=== PATIENT | female | born 1970 | race Caucasian/White ===

== ENCOUNTER → 2021-01-15 09:37 | Outpatient (CLI) | payer OTHER, SELFPAY ==
[2021-01-15 10:14] LABS: Add Manual Diff / Slide Review NO; Basophils Absolute Auto 0 /uL (0-100); Basophils Percent Auto 0.3 % (0-2); Eosinophils Absolute Auto 300 /uL (0-450); Eosinophils Percent Auto 4.1 % (2-4); Hematocrit 40.1 % (36-46); Hemoglobin 13.8 g/dL (12.0-16.0); Lymphocytes Absolute Auto 1500 /uL (1100-4500); Lymphocytes Percent Auto 21.4 % (25-40); Mean Corpuscular HGB Conc 34.3 % (30-36); Mean Corpuscular Hemoglobin 34.1 PG (26-34); Mean Corpuscular Volume 99.5 fL (80-100); Monocytes Absolute Auto 600 /uL (0-900); Monocytes Percent Auto 9.1 % (3-14); Neutrophils Absolute Auto 4500 /uL (1500-7000); Neutrophils Percent Auto 65.1 % (50-75); Platelet Count 326 X10^3/uL (150-400); Red Blood Cell Count 4.04 X10^6/uL (4.0-5.2); Red Cell Distribution Width 13.8 % (11.6-14.8); White Blood Cell Count 6.9 X10^3/uL (4.5-11.0)
[2021-01-15 10:41] LABS: Alanine Aminotransferase 45 IU/L (<35); Albumin 4.3 g/dL (3.5-5.0); Albumin Globulin Ratio 1.4 (1.0-2.8); Alkaline Phosphatase 105 U/L (38-126); Aspartate Aminotransferase 51 IU/L (14-36); BUN Creatinine Ratio 11.4 (6-22); Bilirubin Total 0.5 mg/dL (0.2-1.3); Blood Urea Nitrogen 8 mg/dL (7-17); Calcium 9.7 mg/dL (8.4-10.2); Carbon Dioxide 24 mmol/L (22-32); Chloride 106 mmol/L (98-107); Cholesterol 228 mg/dL (140-199); Estimated Glomerular Filt Rate > 60.0 mL/min (>60); Glucose 104 mg/dL (70-100); HDL Cholesterol 77 mg/dL (40-60); HEMOLYSIS < 15 (0-50); LDL Cholesterol Calculated 132 mg/dL (<100); Potassium 4.2 mmol/L (3.4-5.1); Sodium 138 mmol/L (137-145); Total Protein 7.3 g/dL (6.3-8.2); Triglycerides 93 mg/dL (35-150)
[2021-01-15 11:06] LABS: TSH w/ Reflex to FT4 1.64 uIU/mL (0.47-4.68)
[2021-01-15 11:24] LABS: Vitamin B12 375 pg/mL (239-931)
[2021-01-15 11:35] LABS: Vitamin D 25 Hydroxy (D3) 17.5 ng/mL (30.0-100.0)
== END ==
PROVIDERS: PCP Student in an Organized Health Care Education/Training Program; Referring Provider Student in an Organized Health Care Education/Training Program; Visit Provider Student in an Organized Health Care Education/Training Program
DX: F34.1 Dysthymic disorder (principal); R10.31 Right lower quadrant pain; Z13.220 Encounter for screening for lipoid disorders; E55.9 Vitamin D deficiency, unspecified
CPT/HCPCS: 36415; 80053; 80061; 82306; 82607; 84443; 85025

== ENCOUNTER → 2021-01-22 15:38 | Outpatient (CLI) | payer OTHER, SELFPAY ==
--- NOTE | 2021-01-22 15:39 | DI.US.S_ITS ---
PROCEDURE: US PELVIC COMPLETE INDICATIONS: RIGHT LOWER QUADRANT PAIN TECHNIQUE: Real-time scanning was performed of the pelvic organs, with image documentation. Additional endovaginal scanning was necessary due to incomplete visualization of the adnexal and endometrial structures by transabdominal scanning. COMPARISON: None. FINDINGS: Uterus: Uterus is normal in size at 6.8 x 4.8 x 3.6 cm. The uterus is heterogeneous and demonstrates an intramural fibroid on the right that measures 2.1 x 2.2 x 1.8 cm. The endometrial stripe is not well seen. The IUD is not well seen, yet on a few images it is believed to be within the endometrial stripe at the fundus. Ovaries: The right ovary measures 2.7 x 1.6 x 0.9 cm. The left ovary measures 2.6 x 1.4 x 1.6 cm. The ovaries have a normal sonographic appearance. No adnexal masses are seen. Other: No pathologic free abdominal or pelvic fluid. IMPRESSION: Limited study, with poor visualization of the IUD, which is believed to be at the fundus along the endometrial stripe. The uterus is diffusely heterogeneous, with a 2.2 cm fibroid seen on the right. In this patient with this given history, please consider a dedicated follow-up CT of the abdomen pelvis with at least IV contrast for further evaluation. Dictated by: Tres Estrella M.D. on 01/23/2021 at 10:17 Approved by: Tres Estrella M.D. on 01/23/2021 at 10:23
== END ==
PROVIDERS: PCP Student in an Organized Health Care Education/Training Program; Referring Provider Student in an Organized Health Care Education/Training Program; Visit Provider Student in an Organized Health Care Education/Training Program
DX: R10.31 Right lower quadrant pain (principal)
CPT/HCPCS: 76830; 76856

== ENCOUNTER → 2022-05-19 13:37 | Outpatient (CLI) | payer OTHER, SELFPAY | PROVIDERS: Family Provider Student in an Organized Health Care Education/Training Program; PCP Student in an Organized Health Care Education/Training Program; Referring Provider Student in an Organized Health Care Education/Training Program; Visit Provider Student in an Organized Health Care Education/Training Program ==

== ENCOUNTER → 2023-03-15 08:22 | Outpatient (CLI) | payer OTHER, SELFPAY ==
[2023-03-15 10:08] LABS: Add Manual Diff / Slide Review NO; Basophils Absolute Auto 0 /uL (0-100); Basophils Percent Auto 0.3 % (0-2); Eosinophils Absolute Auto 100 /uL (0-450); Eosinophils Percent Auto 1.8 % (2-4); Hematocrit 41.1 % (36-46); Hemoglobin 14.2 g/dL (12.0-16.0); Lymphocytes Absolute Auto 700 /uL (1100-4500); Lymphocytes Percent Auto 10.4 % (25-40); Mean Corpuscular HGB Conc 34.6 % (30-36); Mean Corpuscular Volume 104.2 fL (80-100); Monocytes Absolute Auto 600 /uL (0-900); Monocytes Percent Auto 8.5 % (3-14); Neutrophils Absolute Auto 5500 /uL (1500-7000); Platelet Count 151 X10^3/uL (150-400); Red Blood Cell Count 3.95 X10^6/uL (4.0-5.2); White Blood Cell Count 6.9 X10^3/uL (4.5-11.0)
[2023-03-15 10:33] LABS: Bacteria Urine Many (>30); Culture Indicated Urine Specimen Cultured; Mucus Urine 2+ (Negative); RBC Urine 1-5/HPF (0-5/HPF); Squamous Epithelial Cell Urine 10-30 /HPF (0-5/HPF); WBC Urine 10-30/HPF (0-5/HPF)
[2023-03-15 10:38] LABS: Alanine Aminotransferase 129 IU/L (<35); Albumin 4.8 g/dL (3.5-5.0); Albumin Globulin Ratio 1.5 (1.0-2.8); Alkaline Phosphatase 89 U/L (38-126); Aspartate Aminotransferase 164 IU/L (14-36); BUN Creatinine Ratio 19.4 (6-22); Bilirubin Total 1.4 mg/dL (0.2-1.3); Blood Urea Nitrogen 13 mg/dL (7-17); C-Reactive Protein Quant 1.5 mg/dL (<1.0); Calcium 9.5 mg/dL (8.4-10.2); Carbon Dioxide 28 mmol/L (22-32); Chloride 96 mmol/L (98-107); Estimated Glomerular Filt Rate > 60 mL/min (>60); Globulin 3.1 g/dL (1.7-4.1); Glucose 100 mg/dL (70-100); HEMOLYSIS < 15 (0-50); Lipase 240 U/L (23-300); Potassium 4.5 mmol/L (3.4-5.1); Sodium 136 mmol/L (137-145); Total Protein 7.9 g/dL (6.3-8.2)
[2023-03-16 12:03] LABS: Thyroid Stimulating Hormone 1.38 uIU/mL (0.47-4.68)
[2023-03-16 12:38] LABS: Folate 3.1 ng/mL (2.76-20.0); Vitamin B12 751 pg/mL (239-931)
[2023-03-19 17:25] LABS: Alanine Aminotransferase 149 IU/L (<35); Albumin 4.7 g/dL (3.5-5.0); Albumin Globulin Ratio 1.3 (1.0-2.8); Alkaline Phosphatase 89 U/L (38-126); Aspartate Aminotransferase 159 IU/L (14-36); Bilirubin Total 1.1 mg/dL (0.2-1.3); Bilirubin Unconjugated 0.6 mg/dL (0.0-1.1); Globulin 3.7 g/dL (1.7-4.1); HEMOLYSIS < 15 (0-50); Total Protein 8.4 g/dL (6.3-8.2)
[2023-03-20 04:00] LABS: HBsAg Screen Negative (Negative); Hepatitis A Antibody IgM Negative (Negative); Hepatitis B Core Antibody IgM Negative (Negative); Hepatitis C Antibody Non Reactive (Non Reactive)
== END ==
PROVIDERS: Family Provider Student in an Organized Health Care Education/Training Program; PCP Pediatrics; Referring Provider Pediatrics; Visit Provider Pediatrics
DX: E66.9 Obesity, unspecified (principal); R11.10 Vomiting, unspecified; R79.89 Other specified abnormal findings of blood chemistry; R10.9 Unspecified abdominal pain; R30.0 Dysuria
CPT/HCPCS: 36415; 80053; 80074; 80076; 81001; 82607; 82746; 83690; 84443; 85025; 86140; 87077; 87086; 87186

== ENCOUNTER → 2023-03-23 16:15 | Outpatient (CLI) | payer OTHER, SELFPAY ==
--- NOTE | 2023-03-23 16:16 | DI.US.S_ITS ---
PROCEDURE: US ABDOMEN LIMITED INDICATIONS: PAIN TECHNIQUE: Real-time focused scanning was performed of the abdomen, with image documentation. COMPARISON: None. FINDINGS: Diffusely echogenic liver is consistent with diffuse hepatic steatosis. No focal liver mass identified. Gallbladder is unremarkable without gallstones or gallbladder wall thickening noted. No dilated ducts. Common duct is 5 mm. Visualized portions the pancreas are unremarkable. IMPRESSION: Diffuse hepatic steatosis. Dictated by: Chris Martinez M.D. on 03/23/2023 at 17:04 Approved by: Chris Martinez M.D. on 03/23/2023 at 17:10
== END ==
PROVIDERS: Family Provider Student in an Organized Health Care Education/Training Program; PCP Pediatrics; Referring Provider Pediatrics; Visit Provider Pediatrics
DX: R79.89 Other specified abnormal findings of blood chemistry (principal); R11.10 Vomiting, unspecified; E66.9 Obesity, unspecified; K76.0 Fatty (change of) liver, not elsewhere classified
CPT/HCPCS: 76705

== ENCOUNTER → 2024-10-31 07:42 | Outpatient (CLI) | payer OTHER, SELFPAY ==
[2024-10-31 08:35] LABS: Add Manual Diff / Slide Review NO; Basophils Absolute Auto 100 /uL (0-100); Basophils Percent Auto 0.6 % (0-2); Eosinophils Absolute Auto 100 /uL (0-450); Eosinophils Percent Auto 0.8 % (2-4); Hematocrit 37.6 % (36-46); Hemoglobin 12.7 g/dL (12.0-16.0); Lymphocytes Absolute Auto 800 /uL (1100-4500); Lymphocytes Percent Auto 6.3 % (25-40); Mean Corpuscular HGB Conc 33.9 % (30-36); Mean Corpuscular Hemoglobin 36.8 PG (26-34); Mean Corpuscular Volume 108.4 fL (80-100); Monocytes Absolute Auto 900 /uL (0-900); Monocytes Percent Auto 6.9 % (3-14); Neutrophils Absolute Auto 11000 /uL (1500-7000); Neutrophils Percent Auto 85.4 % (50-75); Platelet Count 329 X10^3/uL (150-400); Red Blood Cell Count 3.46 X10^6/uL (4.0-5.2); Red Cell Distribution Width 14.7 % (11.6-14.8); White Blood Cell Count 12.8 X10^3/uL (4.5-11.0)
[2024-10-31 08:40] LABS: INR 1.1 (0.9-1.3)
[2024-10-31 08:51] LABS: Alanine Aminotransferase 85 IU/L (<35); Albumin 4.5 g/dL (3.5-5.0); Albumin Globulin Ratio 1.3 (1.0-2.8); Alkaline Phosphatase 138 U/L (38-126); Aspartate Aminotransferase 153 IU/L (14-36); BUN Creatinine Ratio 10.7 (6-22); Bilirubin Total 2.2 mg/dL (0.2-1.3); Blood Urea Nitrogen 6 mg/dL (7-17); Calcium 9.5 mg/dL (8.4-10.2); Carbon Dioxide 20 mmol/L (22-32); Chloride 101 mmol/L (98-107); Cholesterol 227 mg/dL (140-199); Estimated Glomerular Filt Rate > 60 mL/min (>60); Globulin 3.5 g/dL (1.7-4.1); Glucose 129 mg/dL (70-100); HDL Cholesterol 42 mg/dL (40-60); HEMOLYSIS < 15 (0-50); LDL Cholesterol Calculated 158 mg/dL (<100); Potassium 4.6 mmol/L (3.4-5.1); Sodium 136 mmol/L (137-145); Triglycerides 133 mg/dL (35-150)
[2024-10-31 10:24] LABS: Hemoglobin A1C% w Est Avg Glu 4.9 % (4.0-6.0)
== END ==
PROVIDERS: Family Provider Student in an Organized Health Care Education/Training Program; PCP Family Medicine; Referring Provider Student in an Organized Health Care Education/Training Program; Visit Provider Student in an Organized Health Care Education/Training Program
DX: R79.89 Other specified abnormal findings of blood chemistry (principal); F10.14 Alcohol abuse with alcohol-induced mood disorder
CPT/HCPCS: 36415; 80053; 80061; 83036; 85025; 85610

== ENCOUNTER → 2024-11-17 11:29 | Outpatient (CLI) | payer OTHER, SELFPAY ==
--- NOTE | 2024-11-17 11:32 | DI.RAD.S_ITS ---
PROCEDURE: XR CHEST 2V INDICATIONS: ongoing cough TECHNIQUE: 2 views of the chest were acquired. COMPARISON: None. FINDINGS: Surgical changes and devices: None. Lungs and pleura: Lungs are clear. No pleural effusions or pneumothorax. Mediastinum: Mediastinal contours are normal. Heart size is normal. Bones and chest wall: No suspicious bony abnormalities. Soft tissues appear unremarkable. IMPRESSION: No acute cardiopulmonary abnormality is seen. Dictated by: Parvez Huerta M.D. on 11/17/2024 at 13:01 Approved by: Parvez Huerta M.D. on 11/17/2024 at 13:01
== END ==
PROVIDERS: PCP Student in an Organized Health Care Education/Training Program; Referring Provider Student in an Organized Health Care Education/Training Program; Visit Provider Student in an Organized Health Care Education/Training Program
DX: J20.9 Acute bronchitis, unspecified (principal)
CPT/HCPCS: 71046

== ENCOUNTER → 2024-11-21 15:15 | Outpatient (CLI) | payer OTHER, SELFPAY ==
--- NOTE | 2024-11-21 15:16 | DI.US.S_ITS ---
PROCEDURE: US THYROID INDICATIONS: ENLARGED THYROID TECHNIQUE: Real-time scanning was performed of the thyroid gland, with image documentation. COMPARISON: None. FINDINGS: Thyroid: Right lobe measures 4.5 x 1.5 x 1.7 cm. Left lobe measures 4.9 x 1.7 x 2.1 cm. Isthmus is 0.8 cm thick. Echotexture is mildly heterogeneous. Nodule number: 1 Location: Left upper pole Size: 2.8 x 1.5 x 1.9 cm. Composition: Solid Echogenicity: Hypoechoic Shape: wider than tall. Margins: Smooth Echogenic foci: Non Total points: 4 ACR TI-RADS category: 4 IMPRESSION: There is a single thyroid nodule of maximum diameter of 2.8 cm, a category 4 lesion. Please see the definitions and recommendations listed below. It is recommended that category 4 lesions of this size undergo ultrasound-guided FNA for tissue diagnosis, if this nodule has not previously been sampled with a benign diagnosis. ACR TI-RADS definitions and recommendations: TI-RADS 1 (benign): 0 points. FNA not needed. TI-RADS 2 (not suspicious): 2 points. FNA not needed. TI-RADS 3: 3 points. * FNA if 2.5 cm or larger, follow up if 1.5 cm or larger (at 1, 3, and 5 years). TI-RADS 4: 4-6 points. * FNA if 1.5 cm or larger, follow up if 1 cm or larger (at 1, 2, 3, and 5 years). TI-RADS 5: 7 points or more. * FNA if 1 cm or larger, follow up if 0.5 cm or larger (every year for 5 years). Dictated by: Chris Martinez M.D. on 11/21/2024 at 20:34 Approved by: Chris Martinez M.D. on 11/21/2024 at 20:36
== END ==
PROVIDERS: PCP Student in an Organized Health Care Education/Training Program; Referring Provider Student in an Organized Health Care Education/Training Program; Visit Provider Student in an Organized Health Care Education/Training Program
DX: E04.1 Nontoxic single thyroid nodule (principal)
CPT/HCPCS: 76536

== ENCOUNTER → 2024-12-11 10:13 | Outpatient (CLI) | payer OTHER, SELFPAY ==
--- NOTE | 2024-12-11 10:15 | DI.US.S_ITS ---
PROCEDURE: US FINE NEEDLE ASPIRATION INDICATIONS: thyroid nodule, category 4 lesion TECHNIQUE: The indications, alternatives, benefits, risks, and complications of the procedure were explained to the patient. Written informed consent was obtained and placed in the chart. The thyroid region was examined sonographically and a site was chosen for ultrasound guided percutaneous sampling. The skin was prepared and draped in the usual fashion, and anesthetized with 1% lidocaine infiltrated from the skin down to the thyroid gland. Multiple passes were then performed, with contents emptied into an appropriate pathology specimen container. A bandage was applied to the area of access at completion of the study. COMPARISON: None. FINDINGS: Location(s) of lesion(s) sampled: Mid-lower left thyroid lobe [place]: 25 gauge hypodermic needles. Number of passes: 9 Medications: 1% lidocaine for local anaesthesia. Complications: None. IMPRESSION: Successful ultrasound-guided thyroid nodule fine needle aspiration, with cytology results pending. Please see chart below for management recommendations based on cytology results. [facility] System ReportingRecommendationsNon-diagnostic* Repeat US-guided FNA, with on-site cytology evaluation if possible. * Repeated non-diagnostic nodules without high suspicion US features: close observation vs surgical consult. * Consider surgery if nodule has high suspicion US features, grows >20% in 2 dimensions on followup, or patient has clinical risk factors for malignancy. Benign* If nodule has high suspicion US features: repeat US and FNA within 12 months. * If nodule has low to intermediate suspicion US features: repeat US at 12-24 months. If nodule grows (20% increase in at least 2 dimensions, with minimal increase of 2 mm or >50% change in volume), or development of new suspicious US features, then repeat FNA or continue followup. * If nodule has very low suspicion US features: followup US at >24 months. Atypia of undetermined significance, follicular lesion of undetermined significanceRepeat FNA, molecular testing, followup US, or surgical consult.Follicular neoplasm, suspicious for follicular neoplasmSurgical consult; also consider molecular testing. Suspicious for malignancySurgical consult.MalignantSurgical consult. Dictated by: Yoel Blanco M.D. on 12/13/2024 at 9:26 Approved by: Yoel Blanco M.D. on 12/13/2024 at 9:27
--- NOTE | 2024-12-11 11:05 | PATH_ITS ---
Note [facility] Accession Number: [id number] TESTS RESULT FLAG UNITS REF RANGE LAB Clinician Provided Cytology Information No. of containers..01 Other (Miscellaneous) No. of containers..08 Previously Prepared Cytology Slide Source: LEFT THYROID DIAGNOSIS: LEFT THYROID NEGATIVE FOR MALIGNANT CELLS. [place] CATEGORY II. SPECIMEN CONSISTS OF FEW BENIGN FOLLICULAR CELLS, HEMOSIDERIN-LADEN MACROPHAGES, COLLOID, AND BLOOD. THIS PATTERN IS CONSISTENT WITH FOLLICULAR NODULAR DISEASE. Pathologist ICD10: E04.1 Signed out by: Loreto Wyatt MD, Pathologist NPI- [id number] Performed by: Anselmo Lopez, Pulmonary Specialist ([facility]) Gross description: 30 CC, RED, HAZY RECIEVED: IN CYTOLYT WITH 9 ALCOHOL FIXED AND 9 QUICK STAINED SLIDES ALSO 1 RNA VIAL WILL ON 05-26-2025.VO /VDU 12/12/2024 0628 Local FLAG LEGEND: L-Low Normal,H-High Normal,LL-Alert Low,HH-Alert High <-Panic Low,>-Panic High,A-Abnormal,AA-Critical Abnormal Performed at: 01 =[address] [facility]ly [address] [facility], [place] [address] Rosales Doyle MD, Performed at: [address] [address], [place], [place] [id number] MD Rosales Doyle MD Phone: [phone]
== END ==
PROVIDERS: PCP Student in an Organized Health Care Education/Training Program; Referring Provider Student in an Organized Health Care Education/Training Program; Visit Provider Student in an Organized Health Care Education/Training Program
DX: E04.1 Nontoxic single thyroid nodule (principal)
CPT/HCPCS: 10005

== ENCOUNTER → 2024-12-25 11:58 | Outpatient (CLI) | payer OTHER, SELFPAY ==
--- NOTE | 2024-12-25 11:59 | DI.MG.S_ITS ---
MM diagnostic mammo BI, US breast RT limited: 12/25/2024 BI-RADS: 4B CLINICAL: 54-year old female for bilateral diagnostic mammogram and right diagnostic breast ultrasound. Tyrer-Cuzick lifetime risk of 8.2%. No personal or first-degree family history of breast cancer. The patient reports pain (6 months) in both breasts. PRIOR EXAMS No prior examinations available. MAMMOGRAPHY TECHNIQUE: 2D and 3D (tomosynthesis) digital mammographic views obtained, with additional images as needed for full coverage. Current study was also evaluated with a Computer Aided Detection (CAD) system. ULTRASOUND TECHNIQUE Real-time mccoy scale and color doppler imaging of the area of clinical interest was performed with image documentation. Right targeted breast ultrasound of the area of clinical interest and the axilla was performed with image documentation. DENSITY B. There are scattered areas of fibroglandular density. MAMMOGRAPHY FINDINGS Right: Outer at 9:00, Middle depth, measuring 0.7 cm: There is an irregular mass present with associated possible architectural distortion and calcifications. Left: No suspicious mass, asymmetry, microcalcification, or other abnormality seen. Bilateral: There is no underlying mammographic correlate to the diffuse bilateral breast pain. ULTRASOUND FINDINGS Right: Outer at 8:30, 6.0 cm from nipple, measuring 0.6 x 0.5 x 0.8 cm: Correlating with findings on mammogram there is a hypoechoic mass with angular margins showing combined posterior acoustic features. Associated features include thick echogenic halo. Right: No abnormal lymph nodes are seen in the axilla. IMPRESSION: * No imaging correlate to explain diffuse bilateral breast pain. Right (Mass): Outer at 8:30, 6.0 cm from nipple, measuring 0.6 x 0.5 x 0.8 cm * Moderate Suspicion of Malignancy. Left * No evidence of malignancy. RECOMMENDATIONS * The cause of breast pain is not seen; the need to further evaluate should be based on clinical assessment. Right: Outer at 8:30, 6.0 cm from nipple * Ultrasound-guided biopsy for further evaluation. COMMENTS: Findings and recommendations were discussed with the patient by Dr. Medrano during today's examination. OVERALL ASSESSMENT CATEGORY BI-RADS-4: Suspicious. ELECTRONICALLY SIGNED: Rosi Ferrara M.D. on 12/25/2024 at 03:18:27 PM PT Interpreting Station ID: [id number]
== END ==
PROVIDERS: PCP Student in an Organized Health Care Education/Training Program; Referring Provider Student in an Organized Health Care Education/Training Program; Visit Provider Student in an Organized Health Care Education/Training Program
DX: N63.13 Unspecified lump in the right breast, lower outer quadrant (principal); N64.4 Mastodynia
CPT/HCPCS: 76642; 77066; G0279

== ENCOUNTER → 2025-01-19 13:38 | Outpatient (CLI) | payer OTHER, SELFPAY ==
--- NOTE | 2025-01-19 | PATH_ITS ---
[facility] Accession Number: [id number] No. of containers..01 Tissue . 01 Material submitted: . breast - RIGHT BREAST 8:30 6CMFN . 01 Clinical history: . 8:30, 6CMFN . 01 Diagnosis: RIGHT BREAST, 8:30, 6 CMFN, ULTRASOUND-GUIDED CORE BIOPSY: Breast parenchyma with focal fat necrosis with giant cells and benign calcifications, suggestive of mechanical trauma or ruptured duct. Background tissue fibrocystic changes, including apocrine metaplasia, microcysts, fibrosis, and focal usual ductal hyperplasia. Negative for atypical hyperplasia, in situ carcinoma, and invasive carcinoma. MRV 01/24/2025 1637 Local . 01 Comment: Immunohistochemistry for cytokeratin GABRIELLA is performed and is negative for invasive carcinoma. . - Technical Note: The immunohistochemical stains reported were performed with appropriate controls at [facility] ([address], [facility] [address]). This test was developed and performance characteristics validated by [facility]. It has not been cleared or approved by the Food and Drug Administration. . 01 Electronically signed: . Ginna Chan DO, Pathologist NPI- [id number] . 01 Gross description: . Received in formalin with two identifiers and R. breast 8 o'clock 6 cm FN, are multiple fragments of yellow to ortega soft tissue aggregating to 1.7 x 1.2 x 0.3 cm. Inked green, filtered, and submitted entirely in cassette A1. . The specimen was removed on 01/19/2025. Time not provided. Cold ischemic time cannot be calculated. Total fixation time is approximately 53 hours. ([id number]) /SEVERIANO 01/20/2025 2313 Local . 01 Pathologist provided ICD-10: N63.0 . 01 CPT . 660339, S53362 Specimen Comment: A courtesy copy of this report has been sent to [phone] Performed at: [address] [id number] MD Rosales Doyle MD Phone: [phone]
--- NOTE | 2025-01-19 13:39 | DI.MG.S_ITS ---
MM diagnostic mammo [id number]: 01/19/2025. BI-RADS: None CLINICAL: 54-year old female for right diagnostic mammogram. Mammogram is performed after US guided biopsy to assess marker location. Tyrer-Cuzick lifetime risk of 8.2%. No personal or first-degree family history of breast cancer. PRIOR EXAMS Mammogram(s): 12/25/2024. Breast Ultrasound(s): 12/25/2024. MAMMOGRAPHY TECHNIQUE: 2 images were obtained including right CC and ML. DENSITY Right: B. There are scattered areas of fibroglandular density. MAMMOGRAPHY FINDINGS Right: Outer at 8:30, 6.0 cm from nipple: There is a (Mini Cork) biopsy marker in targeted location. IMPRESSION: Right * Biopsy marker present. OVERALL ASSESSMENT CATEGORY BI-RADS None: This exam requires no BI-RADS. ELECTRONICALLY SIGNED: James Medrano M.D. on 01/19/2025 at 08:37:30 PM PT Interpreting Station ID: [id number]
--- NOTE | 2025-01-19 13:39 | DI.US.S_ITS ---
US bx breast perc w vac device: 01/19/2025. Rad-Path Correlation: Pending CLINICAL: 54-year old female for right procedure that resulted from diagnostic mammogram on 12/25/2024. Tyrer-Cuzick lifetime risk of 8.2%. No personal or first-degree family history of breast cancer. PRIOR EXAMS Mammogram(s): 12/25/2024. Breast Ultrasound(s): 12/25/2024. CONSENT Risks including but not limited to bleeding and infection, benefits and alternatives were discussed with the patient. The patient agreed to the procedure and signed informed consent. Time out procedure was used. ROUTINE Right: Patient positioned in the supine or supine-oblique position, prepped and draped in the usual manner using sterile technique. TECHNIQUE Right: Outer at 8:30, 6.0 cm from nipple: Procedure: Ultrasound-guided vacuum-assisted biopsy of a mass with Mini Cork marker placement. Device: 14-gauge vacuum-assisted biopsy instrument. BD EleVation(TM). Approach: Lateral. Anesthesia: Local anesthesia obtained using 1%-lidocaine. Secondary local anesthesia obtained using 1%-lidocaine with epinephrine. Skin Entry: Incision with #11 blade. Passes: 3. Targeting Confirmation: Real-time Observation and Post-Procedure Imaging. Marker Placement: Mini cork marker placed in target location. Post-procedure imaging: Post-procedure imaging confirms the marker to be in target location. Rad/Path Correlation: Pending receipt of pathology report. Conclusion: Ultrasound-guided Vacuum-assisted biopsy with post-procedure CC and ML mammographic views with marker placement, Right: Outer at 8:30, 6.0 cm from nipple POST-PROCEDURE NOTE The lesion collapsed after the second pass, consistent with a cyst. COMPLICATIONS: No complications were encountered while the patient was in our department. DISPOSITION The patient left our department in good condition with aftercare instructions and urged to contact us should any problem arise. The breast was compressed to achieve hemostasis. SUMMARY Right: Outer at 8:30, 6.0 cm from nipple: Ultrasound-guided vacuum-assisted biopsy of a mass with Mini Cork marker placement. PATHOLOGY Right: Outer at 8:30, 6.0 cm from nipple: Radiologist-Pathologist Correlation: Pending receipt of pathology report. ELECTRONICALLY SIGNED: James Medrano M.D. on 01/19/2025 at 08:35:18 PM PT Interpreting Station ID: [id number]
== END ==
PROVIDERS: Family Provider Student in an Organized Health Care Education/Training Program; PCP Student in an Organized Health Care Education/Training Program; Referring Provider Student in an Organized Health Care Education/Training Program; Visit Provider Student in an Organized Health Care Education/Training Program
DX: N63.13 Unspecified lump in the right breast, lower outer quadrant (principal); Z97.8 Presence of other specified devices
CPT/HCPCS: 19083; 77065

== ENCOUNTER → 2025-02-06 12:19 | Outpatient (CLI) | payer OTHER, SELFPAY ==
[2025-02-06 13:18] LABS: Add Manual Diff / Slide Review NO; Basophils Absolute Auto 0 /uL (0-100); Basophils Percent Auto 0.5 % (0-2); Eosinophils Absolute Auto 200 /uL (0-450); Eosinophils Percent Auto 3.1 % (2-4); Hematocrit 41.1 % (36-46); Hemoglobin 14.2 g/dL (12.0-16.0); Lymphocytes Absolute Auto 1500 /uL (1100-4500); Lymphocytes Percent Auto 20.9 % (25-40); Mean Corpuscular HGB Conc 34.5 % (30-36); Mean Corpuscular Hemoglobin 33.1 PG (26-34); Mean Corpuscular Volume 96.1 fL (80-100); Monocytes Absolute Auto 600 /uL (0-900); Monocytes Percent Auto 8.2 % (3-14); Neutrophils Absolute Auto 4900 /uL (1500-7000); Neutrophils Percent Auto 67.3 % (50-75); Platelet Count 261 X10^3/uL (150-400); Red Blood Cell Count 4.27 X10^6/uL (4.0-5.2); Red Cell Distribution Width 12.7 % (11.6-14.8); White Blood Cell Count 7.3 X10^3/uL (4.5-11.0)
[2025-02-06 13:40] LABS: Erythrocyte Sedimentation Rate 25 MM/HR (0-20)
[2025-02-06 13:50] LABS: Alanine Aminotransferase 30 IU/L (<35); Albumin 4.8 g/dL (3.5-5.0); Albumin Globulin Ratio 1.3 (1.0-2.8); Alkaline Phosphatase 74 U/L (38-126); Aspartate Aminotransferase 49 IU/L (14-36); Bilirubin Total 1.1 mg/dL (0.2-1.3); Blood Urea Nitrogen 14 mg/dL (7-17); C-Reactive Protein Quant 0.7 mg/dL (<1.0); Calcium 9.6 mg/dL (8.4-10.2); Carbon Dioxide 24 mmol/L (22-32); Chloride 99 mmol/L (98-107); Estimated Glomerular Filt Rate > 60 mL/min (>60); Globulin 3.7 g/dL (1.7-4.1); Glucose 90 mg/dL (70-99); HEMOLYSIS 20 (0-50); Potassium 4.1 mmol/L (3.4-5.1); Sodium 135 mmol/L (137-145); Total Protein 8.5 g/dL (6.3-8.2)
[2025-02-06 14:04] LABS: Free T3, Triiodothyronine Free 3.94 pg/mL (2.77-5.27); Free T4, Direct Thyroxine 1.22 ng/dL (0.78-2.19)
[2025-02-06 14:18] LABS: Thyroid Stimulating Hormone 0.592 uIU/mL (0.47-4.68)
[2025-02-06 14:54] LABS: Folate > 20.0 ng/mL (2.76-20.0); Vitamin B12 775 pg/mL (239-931)
== END ==
PROVIDERS: Family Provider Student in an Organized Health Care Education/Training Program; PCP Student in an Organized Health Care Education/Training Program; Referring Provider Student in an Organized Health Care Education/Training Program; Visit Provider Student in an Organized Health Care Education/Training Program
DX: R20.0 Anesthesia of skin (principal); R20.2 Paresthesia of skin; M25.50 Pain in unspecified joint
CPT/HCPCS: 36415; 80053; 82607; 82746; 84439; 84443; 84481; 85025; 85651; 86038; 86140

== ENCOUNTER → 2025-02-22 12:49 | Outpatient (CLI) | payer OTHER, SELFPAY | PROVIDERS: Family Provider Student in an Organized Health Care Education/Training Program; PCP Student in an Organized Health Care Education/Training Program; Referring Provider Student in an Organized Health Care Education/Training Program; Visit Provider Student in an Organized Health Care Education/Training Program | DX: R20.2 Paresthesia of skin (principal) | CPT/HCPCS: 95886; 95911 ==

== ENCOUNTER → 2025-04-04 08:41 | Outpatient (CLI) | payer OTHER, SELFPAY ==
--- NOTE | 2025-04-04 08:41 | DI.MRI.S_ITS ---
PROCEDURE: MR LUMBAR SPINE WO/W CON INDICATIONS: Lesion TECHNIQUE: Noncontrast sagittal T1 spin echo and T2 fast echo, sagittal STIR, and T2 fast spin echo through the lumbar spine. In cases with scoliosis, additional coronal T2 fast spin echo may be performed. COMPARISON: None. FINDINGS: Image quality: Excellent. Alignment and Curvature: No plain films are available for comparison, for numbering purposes. Thus, for the purposes of this examination, 5 lumbar type vertebral bodies will be presumed, as denoted on the montage panel. This should be confirmed and correlated with plain films, prior to any lumbar spinal intervention. Alignment is normal. Bone Marrow: Marrow is of normal overall signal. No acute vertebral body compression fractures. Mild reactive signal within the endplates adjacent to the L4-L5 and L5-S1 intervertebral discs. Spinal Cord: Conus medullaris terminates at the mid L2 level. Visualized cord demonstrates normal signal and size. Paraspinous Soft Tissues: No paravertebral masses. T12-L1: Normal appearance. L1-L2: Normal appearance. L2-L3: Mild bilateral facet and ligamentum flavum hypertrophy. Mild epidural lipomatosis. Mild canal stenosis. No foraminal stenosis. L3-L4: Mild facet and ligamentum flavum hypertrophy. Mild epidural lipomatosis. Mild canal stenosis. Mild bilateral foraminal stenosis. L4-L5: Mild disc desiccation and diffuse disc bulge. Mild facet and ligamentum flavum hypertrophy. Mild epidural lipomatosis. Mild canal stenosis. Mild to moderate bilateral foraminal stenosis. L5-S1: Mild disc desiccation and diffuse disc bulge. Mild bilateral facet hypertrophy. Mild canal stenosis. Moderate bilateral foraminal stenosis. IMPRESSION: 1. Multilevel degenerative disc and facet disease, as well as ligamentum flavum hypertrophy and epidural lipomatosis. 2. Mild multilevel canal stenoses. 3. Multilevel mild and moderate foraminal stenoses. Dictated by: Jeff Johnson M.D. on 04/04/2025 at 12:10 Approved by: Jeff Johnson M.D. on 04/04/2025 at 12:13
== END ==
PROVIDERS: Family Provider Student in an Organized Health Care Education/Training Program; PCP Student in an Organized Health Care Education/Training Program; Referring Provider Student in an Organized Health Care Education/Training Program; Visit Provider Student in an Organized Health Care Education/Training Program
DX: G54.9 Nerve root and plexus disorder, unspecified (principal); M48.061 Spinal stenosis, lumbar region without neurogenic claudication; M46.06 Spinal enthesopathy, lumbar region; E88.2 Lipomatosis, not elsewhere classified
CPT/HCPCS: 72158; A9579

== ENCOUNTER 2025-07-18 09:45 | Outpatient (RCR) | payer OTHER, SELFPAY ==
--- NOTE | 2025-04-27 16:00 | PT.OPPOC ---
Physical, Occupational & Speech Therapy At [facility] Current Diagnoses Dorsalgia, unspecified (04/27/25) Pain in right leg (04/27/25) Pain in left leg (04/27/25) Visit Care Team Role Provider Type Ana Montenegro MD Attending Provider Physician Family Provider Primary Care Provider Referring Provider Specialty: Family Practice Obstetrics Address: [address] [place] [address], [address] Email: [email or web address] Plan Of Care PT OP: Lower Back/Lower Extremity Start: 04/27/25 16:17 Freq: Status: Active Protocol: Document 04/27/25 15:15 DCW (Rec: 04/27/25 16:56 DCW [id number]) Out-Patient Physical Therapy Visit Information Visit Information Visit Type Initial Evaluation Visit Start Time 15:15 Visit Stop Time 16:05 Visit Number 1 Number of DESK TOP PUBLISHER Visits 0 Progress Note Due 05/27/25 Evaluation Information Evaluation Date 04/27/25 Current Condition History of Current Condition Onset Date Eight month history Current Complaints Low back pain, numbness in legs History of Current Pt is a 55 year old female presenting with an eight Condition month history of low back pain and bilateral leg pain/ numbness. Pt reports pain began suddenly at the beginning of this year. 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 MRI also showed degenerative changes and mild-moderate stenosis. Pt reports she has been referred to a spinal surgeon at the start of next month. Reports she was having a lot of nerve pain in her foot, although has been better since starting Gabapentin. Admits she has been stiff and sore when first waking up in the morning, feels a bit better after using a hot pack and moving around more. Foot numbness feels like it is impacting her balance, and stairs are difficult. Does vary a bit day to day, felt okay waking up the past few days, but then today was very sore. Hoping to help her back pain as much as possible, and improve balance and stability. Prior Treatments and Lumbar MRI: IMPRESSION: 1. Multilevel degenerative Tests disc and facet disease, as well as ligamentum flavum hypertrophy and epidural lipomatosis. 2. Mild multilevel canal stenoses. 3. Multilevel mild and moderate foraminal stenoses. per Jeff Johnson M.D. on 04/04/2025 OP-PT Subjective Patient Comments Patient Comments Pt reports foot numbness is her biggest concern, as it is impacting her balance. Balance Tests CTSIB CTSIB Position 1 Trace Sway CTSIB Position 2 Mild Sway CTSIB Position 3 Trace Sway CTSIB Position 4 Mild Sway CTSIB Position 5 Fall Reaction CTSIB Position 6 Moderate Sway Single Limb Standing Single Limb- Right 21 Single Limb- Left 35 Tandem Tandem Standing 45+ bilaterally. Takes 6 steps with tandem amb Special Tests Lumbar Spine Special Tests SHIRA Test Results Negative Straight Leg Raise Test Results Negative Slump Test Results Negative A-P Shearing Test Results Negative Hip Strength Hip Manual Muscle Testing Right Flexion (L2) 4+ Good+ Abduction 4+ Good+ Adduction 4+ Good+ External Rotation 4+ Good+ Internal Rotation 4+ Good+ Comments Pain with resisted hip flexion Left Flexion (L2) 4+ Good+ Abduction 4+ Good+ Adduction 4+ Good+ External Rotation 4+ Good+ Internal Rotation 4+ Good+ Comments Pain with resisted hip flexion Therapeutic Exercises Supine Exercises Bicycle Supine Exercise Name PPT /c Air Bicycle SLR Supine Exercise Name PPT /c SLR Marching Supine Exercise Name PPT /c Marching PPT Supine Exercise Name PPT /c TrA contraction Physical Therapy Assessment Rehab Potential Rehabilitation Good Potential Evaluation Complexity Number of Personal 3 or More Factors/ Comorbidities Number of Body 4 or More Systems Impaired Clinical Unstable Presentation at Evaluation Impairments Impairments Activity Tolerance,Balance,Functional Activities, Functional Mobility,Pain,Soft Tissue Mobility Goals Two Impairment Pt exhibits fall reaction in CTSIB position V Penitentiary Goal (LTG) Pt to perform CTSIB position V with at worst moderate sway for 30 seconds in order to demonstrate improved balance LTG Duration 07/26/25 One Impairment Pt does not have an appropriate home exercise program Phone Operator Goal (LTG) Pt to demonstrate ability to perform four HEP activities without cueing in order to demonstrate independence. LTG Duration 07/26/25 Assessment Summary Assessment Pt presents with signs and symptoms consistent with referring diagnosis. Appears to be suffering from radicular symptoms into her feet from her low back. Impacting her balance and mobility on stairs. Pt may benefit from skilled therapeutic intervention focusing on balance, abdominal strengthening, LE strengthening, functional mobility, and activity tolerance. With upcoming appointment with spinal surgeon, PT plan may need to be adjusted as needed. Physical Therapy Plan Frequency and Duration Frequency of 2x/Week Treatment Plan of Care Start 04/27/25 Date Plan of Care End 07/26/25 Date Therapeutic Interventions Therapeutic Balance Training,Gait Training,Home Exercise Program, Interventions Joint Mobilizations,Manual Therapy,Neuromuscular Re- education,Patient/Caregiver Education,Self-Care/Home Management,Soft Tissue Mobilization,Taping,Therapeutic Activities,Therapeutic Exercises Next Visit Focus/Plan Next Note Type Treatment Note Next Visit Plan Core strengthening, balance challenges Plan of Care Dates Plan of Care Start Date 04/27/25 Plan of Care End Date 07/26/25 Electronically Signed by: Marbin Gunn, PT 04/30/25 3931 If you are in agreement with this Plan of Care, please return a signed and dated copy. I have reviewed this Plan of Care and certify that the skilled therapy services above are required to meet the patient?s needs. Physician Signature Date Printed Name and Credentials Clinical Instructor Signature Printed Name and Credentials
--- NOTE | 2025-05-04 09:18 | PT.OTN ---
Current Diagnoses Dorsalgia, unspecified (05/04/25) Pain in right leg (05/04/25) Pain in left leg (05/04/25) Physical Therapy Treatment Note PT OP: Lower Back/Lower Extremity Start: 04/27/25 16:17 Freq: Status: Active Protocol: Document 05/04/25 08:15 PHARMACY DIRECTOR (Rec: 05/04/25 09:18 PHARMACY DIRECTOR Laptop) Out-Patient Physical Therapy Visit Information Visit Information Visit Type Treatment Note Visit Start Time 08:18 Visit Stop Time 09:04 Visit Number 2 Number of HAT LINING PASTER Visits 0 Progress Note Due 05/27/25 OP-PT Subjective Patient Comments Patient Comments Pt reports she woke up with 5/10 pain to R low back but decreased after laying on heat pad. Has been working on HEP Therapeutic Exercises Supine Exercises Bridges Supine Exercise Name 1. without band 2. L3 TB around knees Side bilateral Reps/Minutes x15 without TB, x15 with TB Comments Added to HEP with HO, VC for TA activation LE rotation Supine Exercise Name on exercise ball, straight leg R and L rotations Side bilateral Reps/Minutes x10 each side Comments VC for slow with control to maintain stable pelvis Heel slides Supine Exercise Name on medium exercise ball Side bilateral Reps/Minutes x15 Comments VC for slow with control and breathing Bicycle Supine Exercise Name HEP review: PPT /c Air Bicycle from medium exercise ball Side bilateral Reps/Minutes x20 Comments pain with air bike without support, improved from ball, VC for level pelvis SLR Supine Exercise Name HEP review: PPT /c SLR Side bilateral Reps/Minutes 10x2 each leg Comments VC for bent opposite leg and not raising as high Marching Supine Exercise Name HEP review: PPT /c Marching Side bilateral Reps/Minutes x15 Comments VC for coordinating breathing, slower for pelvis control Sidelying Exercises Clamshell Side bilateral Reps/Minutes x15 Comments Added to HEP with HO Therapeutic Activity Therapeutic Activity Sleeping position Reps/Minutes 5 mins Comments pain and difficulty when sleeping on side. Recommended 2 pillows between knees for level knees to hips Physical Therapy Assessment Goals Two Impairment Pt exhibits fall reaction in CTSIB position V Longterm Goal (LTG) Pt to perform CTSIB position V with at worst moderate sway for 30 seconds in order to demonstrate improved balance LTG Duration 07/26/25 One Impairment Pt does not have an appropriate home exercise program Longterm Goal (LTG) Pt to demonstrate ability to perform four HEP activities without cueing in order to demonstrate independence. LTG Duration 07/26/25 Assessment Summary Assessment Pt demonstrated HEP well with min VC, added bridges with L3 TB and sidelying clamshells to HEP not yet with TB d/t noted fatigue of glute med on last few reps. Recommended pillows between knees for improved pain while sleeping on side, provided a lot of education on core and glute medius strengthening for improved support and balance while performing functional tasks, pt very receptive to education. Physical Therapy Plan Frequency and Duration Frequency of 2x/Week Treatment Plan of Care Start 04/27/25 Date Plan of Care End 07/26/25 Date Next Visit Focus/Plan Next Note Type Treatment Note Next Visit Plan advance clamshells to with TB as needed, balance challenges
--- NOTE | 2025-05-11 09:46 | PT.OTN ---
Current Diagnoses Dorsalgia, unspecified (05/11/25) Pain in right leg (05/11/25) Pain in left leg (05/11/25) Physical Therapy Treatment Note PT OP: Lower Back/Lower Extremity Start: 04/27/25 16:17 Freq: Status: Active Protocol: Document 05/11/25 09:00 DCW (Rec: 05/11/25 09:46 DCW [id number]) Out-Patient Physical Therapy Visit Information Visit Information Visit Type Treatment Note Visit Start Time 09:00 Visit Stop Time 09:45 Visit Number 3 Number of BOOMSWING OPERATOR Visits 0 Progress Note Due 05/27/25 Evaluation Information Evaluation Date 04/27/25 OP-PT Subjective Patient Comments Patient Comments Pt reports she saw the spinal surgeon yesterday, her L$ -5 are out of alignment, it might be pinching a nerve and causing her foot numbness. I also have some arthritis in my right hip. Reports the plan for now is a steroid injection next week and continue PT. Therapeutic Exercises Supine Exercises Bridges Supine Exercise Name Bridging LE rotation Supine Exercise Name LTR on Red 55 cm T-ball Side bilateral Reps/Minutes x10 each side Comments VC for slow with control to maintain stable pelvis Sidelying Exercises Hip Abduction Sidelying Exercise Hip Abduction Name Side bilateral Reps/Minutes x15 Reverse Clamshell Sidelying Exercise Reverse Clamshell Name Side bilateral Reps/Minutes x15 Standing Exercises Hip Extension Standing Exercise Hip Extension Name Side bilateral Resistance Green loop Comments VCs for posture Pallof Press Standing Exercise Pallof Press Name Side bilateral Resistance Blue Other Exercises Resisted Ambulation Other Exercise Name Resisted Ambulation Resistance Green loop Neuro Re-Education Treatment Balance Activities SLS Details SLS Surface AirEx Equipment // bars Tandem Details Tandem Stance Surface AirEx Equipment // bars Physical Therapy Assessment Goals Two Impairment Pt exhibits fall reaction in CTSIB position V Technical Support 1 Software Engineer Goal (LTG) Pt to perform CTSIB position V with at worst moderate sway for 30 seconds in order to demonstrate improved balance LTG Duration 07/26/25 One Impairment Pt does not have an appropriate home exercise program Group Home Goal (LTG) Pt to demonstrate ability to perform four HEP activities without cueing in order to demonstrate independence. LTG Duration 07/26/25 Assessment Summary Assessment Pt continues to respond well to PT, noted reverse clamshell and resisted side-stepping was a struggle, felt like a good workout for her hips. Added reverse clam and provided T-band loop for home use. Continue to work on hip and core strengthening and balance challenges. Physical Therapy Plan Frequency and Duration Frequency of 2x/Week Treatment Plan of Care Start 04/27/25 Date Plan of Care End 07/26/25 Date Therapeutic Interventions Therapeutic Balance Training,Gait Training,Home Exercise Program, Interventions Joint Mobilizations,Manual Therapy,Neuromuscular Re- education,Patient/Caregiver Education,Self-Care/Home Management,Soft Tissue Mobilization,Taping,Therapeutic Activities,Therapeutic Exercises Next Visit Focus/Plan Next Note Type Treatment Note Next Visit Plan advance clamshells to with TB as needed, balance challenges
--- NOTE | 2025-05-25 12:16 | PT.OTN ---
Current Diagnoses Dorsalgia, unspecified (05/25/25) Pain in right leg (05/25/25) Pain in left leg (05/25/25) Physical Therapy Treatment Note PT OP: Lower Back/Lower Extremity Start: 04/27/25 16:17 Freq: Status: Active Protocol: Document 05/25/25 11:30 DCW (Rec: 05/25/25 12:16 DCW [id number]) Out-Patient Physical Therapy Visit Information Visit Information Visit Type Progress Note Visit Start Time 11:30 Visit Stop Time 12:15 Visit Number 4 Number of WAREHOUSE OPERATIONS ASSOCIATE Visits 0 Progress Note Due 06/24/25 Evaluation Information Evaluation Date 04/27/25 OP-PT Subjective Patient Comments Patient Comments Pt has not gotten her injection yet, waiting for referral to be sent. Does note that she has continued to take Aleve, and other than a day or two, has largely been relatively pain-free. Gym Equipment Shuttle Balance Red Details WBOS, Staggered, Lateral weight shift Therapeutic Ball Hip/knee flexion Exercise Details Resisted hip/knee flexion Ball Size/Color Red - 55 cm Lv 3 T-band Body Position Supine Therapeutic Exercises Supine Exercises ITB stretch Supine Exercise Name ITB stretch Side bilateral Hamstring stretch Supine Exercise Name HS Stretch Side bilateral Bridges Supine Exercise Name Bridging /c feet on T-ball Equipment Used Red - 55 cm T-ball LE rotation Supine Exercise Name LTR on Red 55 cm T-ball Side bilateral Reps/Minutes x10 each side Comments VC for slow with control to maintain stable pelvis Standing Exercises Hip Extension Standing Exercise Hip Extension Name Side bilateral Resistance Green loop Comments VCs for posture Other Exercises Resisted Ambulation Other Exercise Name Resisted Ambulation Resistance Green loop Physical Therapy Assessment Goals Two Impairment Pt exhibits fall reaction in CTSIB position V Discharge Planner Goal (LTG) Pt to perform CTSIB position V with at worst moderate sway for 30 seconds in order to demonstrate improved balance LTG Duration 07/26/25 One Impairment Pt does not have an appropriate home exercise program Discharge Planner Goal (LTG) Pt to demonstrate ability to perform four HEP activities without cueing in order to demonstrate independence. LTG Duration 07/26/25 Assessment Summary Assessment Pt feeling better overall, showing good improvements, although does still flare-up occasionally. Still hoping to get cortisone injection to help with radicular symptoms. Focus on strength, mobility, pain relief, and balance. Physical Therapy Plan Frequency and Duration Frequency of 2x/Week Treatment Plan of Care Start 04/27/25 Date Plan of Care End 07/26/25 Date Therapeutic Interventions Therapeutic Balance Training,Gait Training,Home Exercise Program, Interventions Joint Mobilizations,Manual Therapy,Neuromuscular Re- education,Patient/Caregiver Education,Self-Care/Home Management,Soft Tissue Mobilization,Taping,Therapeutic Activities,Therapeutic Exercises Next Visit Focus/Plan Next Note Type Treatment Note Next Visit Plan advance clamshells to with TB as needed, balance challenges
--- NOTE | 2025-06-04 10:32 | PT.OTN ---
Current Diagnoses Dorsalgia, unspecified (06/04/25) Pain in right leg (06/04/25) Pain in left leg (06/04/25) Physical Therapy Treatment Note PT OP: Lower Back/Lower Extremity Start: 04/27/25 16:17 Freq: Status: Active Protocol: Document 06/04/25 09:45 DCW (Rec: 06/04/25 10:31 DCW [id number]) Out-Patient Physical Therapy Visit Information Visit Information Visit Type Treatment Note Visit Start Time 09:45 Visit Stop Time 10:30 Visit Number 5 Number of SHOT BLASTER Visits 0 Progress Note Due 06/24/25 Evaluation Information Evaluation Date 04/27/25 OP-PT Subjective Patient Comments Patient Comments Pt reports she had a bad week, has been had soreness in her back for five days following her last visit. Therapeutic Exercises Supine Exercises Pelvic Realignment Supine Exercise Name Ball squeeze, Single leg pelvic lift, single leg press/ hold Side bilateral ITB stretch Supine Exercise Name ITB stretch Side bilateral Hamstring stretch Supine Exercise Name HS Stretch Side bilateral Manual Therapy Treatment Consent Patient gave verbal Yes consent for manual treatment Soft Tissue Mobilization Lumbar Body Location Lumbar paraspinals, QL, iliac crest Mobilization Type Sustained Pressure,Trigger Point Release Body Position Prone Manual Traction LE Details B hip short axis traction /c strap Body Position Hooklying Physical Therapy Assessment Impairments Impairments Activity Tolerance,Balance,Functional Activities, Functional Mobility,Pain,Soft Tissue Mobility Goals Two Impairment Pt exhibits fall reaction in CTSIB position V Detention Goal (LTG) Pt to perform CTSIB position V with at worst moderate sway for 30 seconds in order to demonstrate improved balance LTG Duration 07/26/25 One Impairment Pt does not have an appropriate home exercise program Meat Puller Goal (LTG) Pt to demonstrate ability to perform four HEP activities without cueing in order to demonstrate independence. LTG Duration 07/26/25 Assessment Summary Assessment Focused today on SI and hip mobility, pt noted feeling much better, continue to work on hip and low back mobility and strengthening. Physical Therapy Plan Frequency and Duration Frequency of 2x/Week Treatment Plan of Care Start 04/27/25 Date Plan of Care End 07/26/25 Date Therapeutic Interventions Therapeutic Balance Training,Gait Training,Home Exercise Program, Interventions Joint Mobilizations,Manual Therapy,Neuromuscular Re- education,Patient/Caregiver Education,Self-Care/Home Management,Soft Tissue Mobilization,Taping,Therapeutic Activities,Therapeutic Exercises Next Visit Focus/Plan Next Note Type Treatment Note Next Visit Plan advance clamshells to with TB as needed, balance challenges
--- NOTE | 2025-06-14 12:59 | PT.OTN ---
Current Diagnoses Dorsalgia, unspecified (06/14/25) Pain in right leg (06/14/25) Pain in left leg (06/14/25) Physical Therapy Treatment Note PT OP: Lower Back/Lower Extremity Start: 04/27/25 16:17 Freq: Status: Active Protocol: Document 06/14/25 12:15 DCW (Rec: 06/14/25 12:58 DCW [id number]) Out-Patient Physical Therapy Visit Information Visit Information Visit Type Treatment Note Visit Start Time 12:15 Visit Stop Time 13:00 Visit Number 6 Number of HEAD MEN'S GOLF COACH Visits 0 Progress Note Due 06/24/25 Evaluation Information Evaluation Date 04/27/25 OP-PT Subjective Patient Comments Patient Comments It's been a good week. Pt notes she has been referred to the pain clinic, but wasn't able to get in until mid-July. Still taking an NSAID daily. Gym Equipment Shuttle Balance Red Details WBOS, Staggered, Lateral weight shift Therapeutic Ball Bridging Exercise Details Bridging /c feet on ball Ball Size/Color Red - 55 cm Body Position Supine LTR Exercise Details LTR Ball Size/Color Red - 55 cm Body Position Supine Manual Therapy Treatment Consent Patient gave verbal Yes consent for manual treatment Soft Tissue Mobilization Lumbar Body Location Lumbar paraspinals, QL, iliac crest Mobilization Type Sustained Pressure,Trigger Point Release Body Position Prone Manual Traction LE Details B hip long-axis traction /c strap Body Position Hooklying Physical Therapy Assessment Goals Two Impairment Pt exhibits fall reaction in CTSIB position V Pre Owned Sales Consultant Goal (LTG) Pt to perform CTSIB position V with at worst moderate sway for 30 seconds in order to demonstrate improved balance LTG Duration 07/26/25 One Impairment Pt does not have an appropriate home exercise program Senior Care Goal (LTG) Pt to demonstrate ability to perform four HEP activities without cueing in order to demonstrate independence. LTG Duration 07/26/25 Physical Therapy Plan Frequency and Duration Frequency of 2x/Week Treatment Plan of Care Start 04/27/25 Date Plan of Care End 07/26/25 Date Therapeutic Interventions Therapeutic Balance Training,Gait Training,Home Exercise Program, Interventions Joint Mobilizations,Manual Therapy,Neuromuscular Re- education,Patient/Caregiver Education,Self-Care/Home Management,Soft Tissue Mobilization,Taping,Therapeutic Activities,Therapeutic Exercises Next Visit Focus/Plan Next Note Type Treatment Note Next Visit Plan advance clamshells to with TB as needed, balance challenges
--- NOTE | 2025-06-21 10:31 | PT.OPPN ---
Current Diagnoses Dorsalgia, unspecified (06/21/25) Pain in right leg (06/21/25) Pain in left leg (06/21/25) Physical Therapy Progress Note PT OP: Lower Back/Lower Extremity Start: 04/27/25 16:17 Freq: Status: Active Protocol: Document 06/21/25 09:45 DCW (Rec: 06/21/25 10:31 DCW [id number]) Out-Patient Physical Therapy Visit Information Visit Information Visit Type Progress Note Visit Start Time 09:45 Visit Stop Time 10:30 Visit Number 7 Number of WAREHOUSE SHIFT SUPERVISOR Visits 0 Progress Note Due 07/21/25 Evaluation Information Evaluation Date 04/27/25 OP-PT Subjective Patient Comments Patient Comments It's been an iffy week, I can make it through most of the night, but it is killing me an hour or two before I 'm supposed to get up. Gym Equipment Shuttle Balance Red Details WBOS, Staggered, Lateral weight shift Therapeutic Exercises Supine Exercises ITB stretch Supine Exercise Name ITB stretch Side bilateral Hamstring stretch Supine Exercise Name HS Stretch Side bilateral Manual Therapy Treatment Consent Patient gave verbal Yes consent for manual treatment Soft Tissue Mobilization Lumbar Body Location Lumbar paraspinals, QL, iliac crest Mobilization Type Sustained Pressure,Trigger Point Release Body Position Prone Manual Traction LE Details B hip long-axis traction /c strap Body Position Hooklying Physical Therapy Assessment Impairments Impairments Activity Tolerance,Balance,Functional Activities, Functional Mobility,Pain,Soft Tissue Mobility Goals Two Impairment Pt exhibits fall reaction in CTSIB position V Half-Way Goal (LTG) Pt to perform CTSIB position V with at worst moderate sway for 30 seconds in order to demonstrate improved balance LTG Duration 07/26/25 One Impairment Pt does not have an appropriate home exercise program Half-Way Goal (LTG) Pt to demonstrate ability to perform four HEP activities without cueing in order to demonstrate independence. LTG Duration 07/26/25 Assessment Summary Assessment Pt progressing in some areas, has plateaued in others. Still experiencing back pain in the morning and numbness in her feet continue to impact her balance, especially descending stairs. Low back tone and mobility is improved, pt feeling more comfortable with HEP. Pt will likely benefit from skilled therapy focusing on STM, strengthening, balance, and functional mobility. Physical Therapy Plan Frequency and Duration Frequency of 2x/Week Treatment Plan of Care Start 04/27/25 Date Plan of Care End 07/26/25 Date Therapeutic Interventions Therapeutic Balance Training,Gait Training,Home Exercise Program, Interventions Joint Mobilizations,Manual Therapy,Neuromuscular Re- education,Patient/Caregiver Education,Self-Care/Home Management,Soft Tissue Mobilization,Taping,Therapeutic Activities,Therapeutic Exercises Next Visit Focus/Plan Next Note Type Treatment Note Next Visit Plan advance clamshells to with TB as needed, balance challenges
--- NOTE | 2025-06-26 15:28 | PT.OTN ---
Current Diagnoses Dorsalgia, unspecified (06/26/25) Pain in right leg (06/26/25) Pain in left leg (06/26/25) Physical Therapy Treatment Note PT OP: Lower Back/Lower Extremity Start: 04/27/25 16:17 Freq: Status: Active Protocol: Document 06/26/25 14:34 AB (Rec: 06/26/25 15:28 AB [id number]) Out-Patient Physical Therapy Visit Information Visit Information Visit Type Treatment Note Visit Note Visit [email or web address]: [email or web address] Visit Start Time 14:34 Visit Stop Time 15:19 Visit Number 8 Number of ENGINEER STATION MAINLINE Visits 1 Progress Note Due 07/21/25 OP-PT Subjective Patient Comments Patient Comments Patient reports she is having a good day, but not a good week. Denisa reports a cortisone shot next WednesdayJul 02. Patient reports she thinks the neuropathy in her feet started last September, but is not sure. SLS without UE use post manual pre glute med act L and R 15 +sec with LOB within 3 sec head turns Therapeutic Exercises Sidelying Exercises Hip Abduction Sidelying Exercise Hip Abduction Name Side bilateral Reps/Minutes x15 Reverse Clamshell Sidelying Exercise Reverse Clamshell Name Side bilateral Reps/Minutes x15 Clamshell Side bilateral Reps/Minutes x15 Comments Added to HEP with HO Standing Exercises Glute med isometric Standing Exercise HEP Name Side bilateral Reps/Minutes 60 sec each LE X 1 Comments verbal and visual cues Therapeutic Activity Therapeutic Activity stair training Name 4 six inch stairs X 2 reciprocal without rails Comments asc and desc with quad dom pattern bilateral LE 's in ER Verbal and visual cues for less quad dom pattern Manual Therapy Treatment Consent Patient gave verbal Yes consent for manual treatment Soft Tissue Mobilization SI area Body Location glute piriformis SI bilaterally Mobilization Type Cross-Friction,Rolling Intensity/Depth Moderate Body Position Sidelying Lumbar Body Location lumbar paraspinals, inter vert tissue Mobilization Type Cross-Friction,Sustained Pressure Intensity/Depth Moderate Body Position Sidelying Manual Techniques R AI L PI Reps/Duration MET for pubic shotgun and R AI L PI 6 sec X 6 Physical Therapy Assessment Goals Two Impairment Pt exhibits fall reaction in CTSIB position V Chemist Inorganic Goal (LTG) Pt to perform CTSIB position V with at worst moderate sway for 30 seconds in order to demonstrate improved balance LTG Duration 07/26/25 One Impairment Pt does not have an appropriate home exercise program Retirement Goal (LTG) Pt to demonstrate ability to perform four HEP activities without cueing in order to demonstrate independence. LTG Duration 07/26/25 Assessment Summary Assessment SLS L and R LE with head turns improved post glute med activation. Patient able to ascend and descend stairs with a less quad dom pattern but excessive ER at hips continues to be a problem, may have calf muscle stiffness. Physical Therapy Plan Frequency and Duration Frequency of 2x/Week Treatment Plan of Care Start 04/27/25 Date Plan of Care End 07/26/25 Date Therapeutic Interventions Therapeutic Balance Training,Gait Training,Home Exercise Program, Interventions Joint Mobilizations,Manual Therapy,Neuromuscular Re- education,Patient/Caregiver Education,Self-Care/Home Management,Soft Tissue Mobilization,Taping,Therapeutic Activities,Therapeutic Exercises Next Visit Focus/Plan Next Note Type Treatment Note Next Visit Plan advance clamshells to with TB as needed, balance challenges
--- NOTE | 2025-07-18 10:23 | PT.OPDS ---
Current Diagnoses Dorsalgia, unspecified (07/18/25) Pain in right leg (07/18/25) Pain in left leg (07/18/25) Visit Care Team Role Provider Type Ana Montenegro MD Attending Provider Physician Family Provider Primary Care Provider Referring Provider Specialty: Family Practice Obstetrics Address: [address] [place] [address], [id number] Email: [email or web address] Visit Number Visit Number 9 Discharge Summary PT OP: Lower Back/Lower Extremity Start: 04/27/25 16:17 Freq: Status: Active Protocol: Document 07/18/25 09:45 DCW (Rec: 07/18/25 10:23 DCW [id number]) Out-Patient Physical Therapy Visit Information Visit Information Visit Type Discharge Summary Visit Start Time 09:45 Visit Stop Time 10:15 Visit Number 9 Number of OTOLARYNGOLOGY REP Visits 0 Progress Note Due 08/17/25 Evaluation Information Evaluation Date 04/27/25 OP-PT Subjective Patient Comments Patient Comments Pt reports her back pain is a thousand times better since her cortisone injection, hasn't had any pain since the day of her shot, but notes her foot numbness has been significantly worse. Balance Tests Single Limb Standing Single Limb- Right 60+ Single Limb- Left 32 Therapeutic Exercises Sitting Exercises Ankle Flexion Sitting Exercise 4-way ankle flexion Name Side bilateral Resistance Lv 3 Standing Exercises Heel Raises Standing Exercise double leg, single leg heel raises Name Neuro Re-Education Treatment Balance Activities SLS Details SLS Equipment // bars Tandem Details Tandem Stance Equipment // bars Physical Therapy Assessment Impairments Impairments Activity Tolerance,Balance,Functional Activities, Functional Mobility,Pain,Soft Tissue Mobility Goals Two Impairment Pt exhibits fall reaction in CTSIB position V Senior Living Goal (LTG) Pt to perform CTSIB position V with at worst moderate sway for 30 seconds in order to demonstrate improved balance LTG Duration 07/26/25 One Impairment Pt does not have an appropriate home exercise program [employer] Goal (LTG) Pt to demonstrate ability to perform four HEP activities without cueing in order to demonstrate independence. LTG Duration Met Assessment Summary Assessment Pt low back pain no longer a complaint following cortisone injection, pt feeling great. Does note increased numbness in feet, wants to discuss with her PCP. Added ankle strengthening to HEP to help with ankle stability/balance. Pt initial complaints largely no longer present, pt agreeable to discharge at this time. Physical Therapy Plan Frequency and Duration Frequency of 2x/Week Treatment Plan of Care Start 04/27/25 Date Plan of Care End 07/26/25 Date Therapeutic Interventions Therapeutic Balance Training,Gait Training,Home Exercise Program, Interventions Joint Mobilizations,Manual Therapy,Neuromuscular Re- education,Patient/Caregiver Education,Self-Care/Home Management,Soft Tissue Mobilization,Taping,Therapeutic Activities,Therapeutic Exercises Discharge Physical Therapy Discharge Reasons Plateau in Progress Next Visit Focus/Plan Next Note Type Discharge Summary
== END 2025-07-19 12:16 | disposition home or self-care (01) ==
LOC: PHYS 09:45
PROVIDERS: Family Provider Student in an Organized Health Care Education/Training Program; PCP Student in an Organized Health Care Education/Training Program; Referring Provider Student in an Organized Health Care Education/Training Program; Visit Provider Student in an Organized Health Care Education/Training Program
DX: M54.9 Dorsalgia, unspecified (principal); M79.604 Pain in right leg; M79.605 Pain in left leg
CPT/HCPCS: 97110; 97112; 97140; 97163

== ENCOUNTER → 2025-08-14 09:28 | Outpatient (CLI) | payer OTHER, SELFPAY ==
--- NOTE | 2025-08-14 09:29 | DI.US.S_ITS ---
US breast RT limited, MM diagnostic mammo unilat RT: 08/14/2025 BI-RADS: 2 CLINICAL: 55-year old female for right diagnostic mammogram and right diagnostic breast ultrasound that is a follow-up to procedure on 01/19/2025. Tyrer-Cuzick lifetime risk of 13.8%. No personal or first-degree family history of breast cancer. The patient had a prior right breast biopsy. PRIOR EXAMS Mammogram(s): 01/19/2025, 12/25/2024. Breast Ultrasound(s): 12/25/2024. Breast Procedure(s): 01/19/2025. MAMMOGRAPHY TECHNIQUE: 2D and 3D (tomosynthesis) digital mammographic views obtained, with additional images as needed for full coverage. Current study was also evaluated with a Computer Aided Detection (CAD) system. ULTRASOUND TECHNIQUE Real-time mccoy scale and color doppler imaging of the area of clinical interest was performed with image documentation. TARGETED Right Breast Ultrasound: Real-time ultrasound exam was performed focused to area of clinical and/or imaging concern. DENSITY Right: B. There are scattered areas of fibroglandular density. MAMMOGRAPHY FINDINGS Right: Lower Outer Quadrant, Middle depth: Correlating with area of biopsy and prior imaging concern, there is a stable focal asymmetry present. ULTRASOUND FINDINGS Right: Outer at 8:30, 6 cm from nipple, measuring 0.5 x 0.3 x 0.5 cm - previously measuring (12/25/2024) 0.8 x 0.5 x 0.6 cm: There is a complicated cyst present. Doppler shows no vascularity. This was biopsied on 01/19/2025 with pathology demonstrating benign breast parenchyma with focal fat necrosis with giant cells and benign calcifications suggestive of trauma or ruptured duct, background fibrocystic changes including apocrine metaplasia, microcysts, fibrosis, and focal usual ductal hyperplasia. IMPRESSION: Right * No evidence of malignancy with benign findings. RECOMMENDATIONS Bilateral * Annual screening mammography (due December 2025). COMMENTS: Findings and recommendations were conveyed to the patient during today's evaluation. OVERALL ASSESSMENT CATEGORY BI-RADS-2: Benign. The [employer] recommends annual screening mammography beginning at age 40 for women with average risk of breast cancer. ELECTRONICALLY SIGNED: Chelle Isaac M.D. on 08/14/2025 at 12:51:42 PM PT Interpreting Station ID: [id number]
== END ==
LOC: MAMMO 09:29
PROVIDERS: Family Provider Student in an Organized Health Care Education/Training Program; PCP Student in an Organized Health Care Education/Training Program; Referring Provider Student in an Organized Health Care Education/Training Program; Visit Provider Student in an Organized Health Care Education/Training Program
DX: N60.01 Solitary cyst of right breast (principal); N63.0 Unspecified lump in unspecified breast; R92.321 Mammographic fibroglandular density, right breast
CPT/HCPCS: 76642; 77065; G0279